=== PATIENT | male | born 1975 | race African-American/Black ===

== ENCOUNTER → 2017-07-20 | Outpatient (CLI) | payer BC, OTHER ==
[~2017-07-20] MED LIST: AMLO-110 PO; LABE100T23 PO; LISI-461 PO
== END | disposition home or self-care (01) ==
LOC: C.RDSM 13:36
PROVIDERS: ATTEND Orthopaedic Surgery Sports Medicine
DX: M25.562 Pain in left knee (principal)

== ENCOUNTER → 2017-07-20 | Outpatient (CLI) | payer BC ==
--- NOTE | 2017-07-20 07:57 | DIAGNOSTIC IMAGING REPORT ---
L UPPER EXTREMITY WITHOUT CT DOSE: 650.70 mGy.cm HISTORY: Pain LT SHOULDER PAIN,TORN ROTATOR CUFFSIGN WAIVER TECHNIQUE: Multiaxial CT images of the left shoulder were performed and reformatted in the sagittal and coronal plane without the use of contrast. A dose lowering technique was utilized adhering to the principles of ALARA. COMPARISON: 07/11/2015 FINDINGS: Fracture posterior glenoid labrum considered partially healed compared to the prior study. This is a nonacute process. Minimal degenerative cystic changes identified at the fracture margins. Findings of significant degenerative changes of glenohumeral joint. There is moderate flattening of the articular services of the humeral head, as well as subchondral cyst formation. There is a be a small joint effusion medially inferior to the acromion containing several punctate radiopaque foreign bodies. There are several small ossifications adjacent to the anteromedial aspect humeral shaft. There are findings of a mild Hill-Sachs type deformity unchanged in the prior study. No evidence for subluxation. IMPRESSION: 1. Findings of a partially healed fracture posterior labrum. 2. Evidence for prior anterior dislocation with associated Hill-Sachs type deformity. This is unchanged. 3. Small joint effusion with several small loose bodies considered slightly progressive from the prior study. 4. No evidence for a major rotator cuff abnormality within the limitations of the CT modality The above report was generated using voice recognition software. It may contain grammatical, syntax or spelling errors. Electronically signed by: Marko Chavarria M.D. 07/20/2017 7:56 AM Dictated Date/Time: 07/20/2017 7:50 AM
== END | disposition home or self-care (01) ==
LOC: C.CTS 07:27
PROVIDERS: ATTEND Orthopaedic Surgery
DX: M19.112 Post-traumatic osteoarthritis, left shoulder (principal)

== ENCOUNTER → 2017-08-15 | Outpatient (CLI) | payer BC ==
--- NOTE | 2017-08-15 13:51 | DIAGNOSTIC IMAGING REPORT ---
L UPPER EXT JOINT WITHOUT CLINICAL HISTORY: 41 years-old Male presenting with LT SHOULDER PAIN,ROTATOR CUFF, injury during football in 1991, history of multiple dislocations, preoperative planning. TECHNIQUE: Multisequence, multiplanar MR imaging of the left shoulder was performed without the use of intravenous contrast. IV contrast: None. COMPARISON: CT from 07/20/2017. FINDINGS: Localizer images: Unremarkable. Significant bony edema in the humeral head subjacent to the articular surface consistent with degenerative change. Mild superior subluxation. Full-thickness cartilage defect primarily of the mid to inferior portion of the humeral head. The opposing glenoid also demonstrates full-thickness cartilage thinning centrally with subchondral cystic change. Minimal cystic change evident at the greater tubercle. Abnormal signal intensity and morphology of the nearly the entire labrum just advanced degenerative change. The inferior labrum likely demonstrates degenerative change but is largely spared. Increased signal intensity within the supraspinatus consistent with tendinosis. Minimal linear high signal along the undersurface at the level of the critical zone could suggest minute partial tear. Evidence of tendinosis of the infraspinatus. Teres minor tendon intact. Subscapularis tendon is markedly abnormal and thickened suggesting full-thickness tear. The long head of the biceps tendon is not distinctly apparent and appears displaced medially (series 4 image 15). This further evidence is disruption of the transverse ligament portion of the subscapularis tendon. Short head of the biceps tendon intact. Evidence of synovitis. No large joint effusion. Normal muscle bulk and muscle signal intensity. Degenerative changes of the acromioclavicular joint. No significant bony spurring along the undersurface of the acromion. An os acromiale noted. IMPRESSION: 1. Advanced degenerative change of the glenohumeral joint with full-thickness cartilage thinning of the mid to inferior humeral head and midportion of the glenoid and resulting subchondral cystic change. 2. Tendinosis with possible minute partial articular surface tear of the supraspinatus. Tendinosis of the infraspinatus. 3. Full-thickness tear of the subscapularis with disruption of the transverse ligament. Resulting displacement of the long head of the biceps tendon. 4. Synovitis, which is likely degenerative in etiology. 5. Diffusely abnormal labrum. 6. Os acromiale. Electronically signed by: Wilfrid Regan M.D. 08/15/2017 1:49 PM Dictated Date/Time: 08/15/2017 1:40 PM
== END | disposition home or self-care (01) ==
LOC: C.MRI 12:40
PROVIDERS: ATTEND Orthopaedic Surgery
DX: M19.112 Post-traumatic osteoarthritis, left shoulder (principal); S46.012A Strain of muscle(s) and tendon(s) of the rotator cuff of left shoulder, initial encounter; X58.XXXA Exposure to other specified factors, initial encounter; M65.9 Synovitis and tenosynovitis, unspecified

== ENCOUNTER → 2017-09-09 | Day surgery (SDC) | payer BC ==
[2017-09-01 11:13] VITALS: Ht 174 cm; Wt 104.5 kg
[~2017-09-09] VITALS: Ht 174 cm; Wt 104.5 kg
[~2017-09-09] MED LIST changes: +ALBUTEROL 0.083% NEBU SOLN 3 ML VIAL INH ONE; -AMLO-110 PO; +AMLO-114 PO; +ATROPINE SULFATE 0.1 MG/ML 5ML SYR IV PRN; +BUPIVACAINE 0.5 % 5 MG/1 ML MPF 30ML VIAL ONE; +CEFAZOLIN 2000MG IV PUSH 10 ML IV SCH; +DEXAMETHASONE SOD INJ 4 MG/ML VIAL ONE; +EpHEDrine SULFATE INJ 50 MG/ML AMP IV PRN; +EpHEDrine SULFATE INJ 50 MG/ML AMP ONE; +EpINEphrine HCL INJ 1 MG/ML 5ML SYRINGE ONE; +EpINEphrine INJ 1MG/ML AMP 1 MG/ML AMP ONE; +FENTANYL CITRATE INJ 50 MCG/1 ML 2 ML VIAL IV PRN; +FENTANYL CITRATE INJ 50 MCG/1 ML 2 ML VIAL ONE; +LACTATED RINGER'S 1000ML 1,000 ML IV SCH; +LBT/100 PO; +LIDOCAINE HCL 1% 20 ML VIAL ONE; +LIDOCAINE HCL 2% 2 ML VIAL (20MG/ML) ONE; -LISI-461 PO; +LSN/2025 PO; +MIDAZOLAM HCL 1 MG/ML 2ML VIAL ONE; +MoRPHine SULFATE 2 MG/ML CARP IV PRN; +MoRPHine SULFATE 4 MG/ML 1 ML CARP\\VIAL IV PRN; +NURSING VERBAL MED ORDER ONE; +ONDANSETRON INJ 2 MG/ML 2 ML VIAL IV PRN; +ONDANSETRON INJ 2 MG/ML 2 ML VIAL ONE; +OXYCODONE/ACETAMINOPHEN 5-325 TAB PO PRN; +PROMETHAZINE HCL INJ 6.25 MG in SODIUM CHLORIDE 0.9% 50ML 50 ML IV PRN; +PROPOFOL IV EMULSION 10 MG/ML 20 ML VIAL IV ONE
--- NOTE | 2017-09-09 06:39 | History & Physical Bridge - SC ---
H&P Re-Evaluation Bridge Note: I have examined the patient, reviewed the History & Physical and in the interval since the performance of the History & Physical I have noted the following changes of clinical significance: No changes noted
--- NOTE | 2017-09-09 08:45 | Discharge Instructions-SurgCtr ---
Discharge Instructions Date of Service Sep 09, 2017. Visit Reason for Visit: Left Knee Medial Meniscus Tear Discharge Discharge Diagnosis / Problem: Status post left knee arthroscopy partial Medial meniscectomy Discharge Goals Goal(s): Decrease discomfort, Improve function, Increase independence Activity Recommendations Activity Limitations: per Instructions/Follow-up section Exercise/Sports Limitations: gradually increase as tolerated (refrain from strenuous activities until after follow-up) May Resume Sexual Activity: when tolerated Shower/Bathe: may shower/bathe in 3 days Driving or Machine Use: Not while on Narcotics & should be walking normally Weightbearing Status: Left weightbearing (as tolerated) Anesthesia . Post Anesthesia Instructions: If you have had General Anesthesia or IV Sedation: * Do not drive today. * Resume driving when surgeon permits. * Do not make important decisions or sign legal documents today. * Call surgeon for: 1. Temperature elevations greater than 101 degrees F. 2. Uncontrollable pain. 3. Excessive bleeding. 4. Persistent nausea and vomiting. 5. Medication intolerance (nausea, vomiting or rash). * For nausea and vomiting use only clear liquids such as: tea, soda, bouillon until nausea subsides, then gradually increase diet as tolerated. * If you have any concerns or questions, call your surgeon's office. If physician is unavailable and it is an emergency, call 911 or go to the nearest emergency room. . Instructions / Follow-Up Instructions / Follow-Up Dr. Franco in 10-15 days. PT in 3-5 days. Diet Recommendations Home Diet: resume previous diet Procedures Procedures Performed: Left Knee Arthroscopy, Partial Medial Meniscectomy, Loose Body Removal, Chondroplasty, Exam Under Anesthesia Pending Studies Studies pending at discharge: no School Instructions Return To School: time frame (1 week) Medical Emergencies . Who to Call and When: Medical Emergencies: If at any time you feel your situation is an emergency, please call 911 immediately. . Non-Emergent Contact Non-Emergency issues call your: Surgeon Call Non-Emergent contact if: temperature is above 101.5, your pain is not controlled, wound has increased drainage, wound has increased redness . . "Provider Documentation" section prepared by Robert Franco. .
--- NOTE | 2017-09-09 08:47 | [facility] Operative Report ---
Operative Report Operative Date Sep 09, 2017. Pre-Operative Diagnosis Left Knee Medial Meniscus tear Post-Operative Diagnosis Same and Chondromalacia, Retained Foreign Body Procedure(s) Performed 1) Left Knee Arthroscopy, Chondroplasty Trochlea. 2) Partial Medial Meniscectomy. 3) Loose Body Removal. 4) Exam Under Anesthesia. Surgeon Dr. Franco Nailer Machine Surgeon(s) Dr. Hosea Santos Estimated Blood Loss 5 ml Findings The left knee was examined under anesthesia. Range of motion was 0-115 degrees. Ligamentous examination exhibited: stable Bhumika, posterior drawer, varus and valgus stress at 0 & 30 degrees. ARTHROSCOPIC FINDINGS: 1) PATELLOFEMORAL JOINT: The articular cartilage of the Patella was intact and Trochlea had central lateral type II Outerbridge changes. There was some synovitis in the patellofemoral joint and fat pad. 2) GUTTERS: No loose bodies. 3) MEDIAL COMPARTMENT: The articular cartilage of the femur had evidence of prior injury and maintained type II changes from 0-30 and Tibia was intact. The medial meniscus had a complex tear from the apex to the posterior horn. 4) ACL/PCL: The ACL graft and PCL were both visualized and probed to be intact. 5) LATERAL COMPARTMENT: The lateral compartment was then entered in a figure-of- four position. The femoral reticular cartilage was intact and tibial articular cartilage had some softening. The lateral meniscus had a small undersurface partial tear approximately 3 mm in length in the posterior aspect. Fluids (cc crystalloids) 800 Specimens none per surgeon Drains n/a Anesthesia GET Complication(s) None Disposition Recovery Room / PACU (Stable) Implants n/a Indications This is a 41-year-old male who has clinical and MRI findings consistent with left knee meniscus tear and chondromalacia. I recommended that a left knee arthroscopy be performed with meniscus repair vs debridement, possible chondroplasty versus microfracture. The patient understands the risks of surgery, which include but not limited to: bleeding, infection, re-operation, damage to nerves and arteries, continued knee pain, progression of OA, DVT, and a 2-5% risk of becoming worse after surgery. The patient understands all of these instructions and explanations, all of his questions have been satisfactorily addressed and the patient has elected to proceed. Informed consent was signed. Description of Procedure The patient was taken to the Operating Room and placed in the supine position after general anesthetic was administered. My initials and a multidisciplinary time-out were used to identify the left leg as the correct operative limb. Prior to the incision, 2 grams of intravenous Ancef was given. The left knee was then injected with 20cc of a 50:50 mix of 1% Lidocaine plain and 0.5% Bupivacaine with epinephrine in a sterile fashion using the superolateral portal. The left leg was then prepped and draped in a standard sterile fashion. The anterolateral and anteromedial portals were injected with the 50:50 mixture noted above, for a total of 2 cc, in the standard fashion. An anterolateral arthroscopic portal was established with an 11-blade. Next, the arthroscope was introduced into the knee. A diagnostic arthroscopy commenced anteromedial portal was established under direct visualization using a spinal needle followed by an 11 blade in the standard fashion. The above findings were observed during the diagnostic arthroscopy. The synovitis and anterior fat pad were debrided as they were encounter with mechanical shaver and [place]. The articular cartilage damage along the trochlea was debrided back to stable margins as they were encountered with mechanical shaver. The medial meniscus tear was evaluated and found to be irreparable and was debrided back to stable margin with hand punches, and mechanical shaver. There was a small portion remaining at the posterior horn and a near subtotal meniscectomy of the posterior meniscus to the apex was performed. Posteriorly some of his previous suture from the meniscal repair was removed with mechanical shaver. One of the plastic anchors was visible and was removed with a grasper. The knee was copiously irrigated. The arthroscopic instruments were then removed. The portals were closed with 3-0 Prolene in a standard fashion. The wound was dressed with Xeroform gauze, sterile gauze, ABDs, sterile Webril, and a foot to thigh Javier bandage. The patient was then transferred to the Recovery Room in stable condition. The sponge and needle counts were correct. Post-op Instructions: The patient will be WBAT. The patient may remove the operative dressing on Post -Op Day #2 and apply Band-Aids to the wounds. The patient may shower in 72 hours and is to wear the ANNETTE for 2 weeks on the operative limb. The patient is to use the pain medicine as needed and take the ASA for 2 weeks. The patient was also given a handout for home quad strengthening and seated self-assisted ROM exercises, which they may begin tomorrow. The patient was given a prescription for PT and is scheduled for an appointment later this week. The patient is to follow up with me in 10-15 days. I attest to the content of the Intraoperative Record and any orders documented therein. Any exceptions are noted below.
[2017-09-09 09:44] VITALS: TEMP 36.4
[2017-09-09 10:10] VITALS: BP 124/79; PULSE 66; O2SAT 97
--- NOTE | 2017-09-09 10:16 | Anesthesia Progress Nt - [facility] ---
Anesthesia Post Op Note Date & Time Sep 09, 2017 at 10:16 Vital Signs Pain Intensity: 1 Vital Signs Past 12 Hours Date Time Temp Pulse Resp B/P (MAP) Pulse Ox O2 Delivery O2 Flow Rate FiO2 09/09/17 10:10 66 16 124/79 (94) 97 Room Air 09/09/17 09:44 36.4 70 18 111/77 (88) 97 Room Air 09/09/17 09:32 36.3 69 15 112/75 97 Room Air 09/09/17 09:31 70 17 09/09/17 09:31 69 17 99 09/09/17 09:30 112/75 09/09/17 09:26 75 16 93 09/09/17 09:26 75 16 09/09/17 09:25 129/63 09/09/17 09:21 70 13 99 09/09/17 09:21 70 13 09/09/17 09:20 108/61 09/09/17 09:16 68 10 09/09/17 09:16 66 10 98 09/09/17 09:15 102/62 09/09/17 09:11 71 16 09/09/17 09:11 71 16 96 09/09/17 09:10 101/76 09/09/17 09:06 72 14 09/09/17 09:06 72 14 94 09/09/17 09:05 100/62 09/09/17 09:01 74 14 97 09/09/17 09:01 74 14 09/09/17 09:00 105/60 09/09/17 08:57 101/56 09/09/17 08:56 36.7 75 22 101/54 96 Mask 6 09/09/17 08:56 74 22 09/09/17 08:56 75 22 91 09/09/17 06:34 36.6 71 16 143/70 (94) 95 Room Air Notes Mental Status: alert / awake / arousable, participated in evaluation Pt Amnestic to Procedure: Yes Nausea / Vomiting: adequately controlled Pain: adequately controlled Airway Patency, RR, SpO2: stable & adequate BP & HR: stable & adequate Hydration State: stable & adequate Anesthetic Complications: no major complications apparent
== END | disposition home or self-care (01) ==
LOC: X.SURG 06:09
PROVIDERS: ATTEND Orthopaedic Surgery Sports Medicine
DX: S83.232A Complex tear of medial meniscus, current injury, left knee, initial encounter (principal); X58.XXXA Exposure to other specified factors, initial encounter; M94.262 Chondromalacia, left knee; M19.90 Unspecified osteoarthritis, unspecified site; I10 Essential (primary) hypertension; F17.200 Nicotine dependence, unspecified, uncomplicated; Z68.34 Body mass index [BMI] 34.0-34.9, adult; E66.9 Obesity, unspecified